=== PATIENT | male | born 1980 | race African-American/Black ===

== ENCOUNTER 2021-01-12 00:43 | Emergency (ER) | payer MEDICAID, OTHER ==
[~2021-01-12] VITALS: Ht 177.8 cm; Wt 5.0 kg
[2021-01-12] MEDS ORDERED: IBUPROFEN 600MG TABLET PO STA (02:15)
[2021-01-12] MEDS ORDERED: IBUP-2029 PO (03:59)
[2021-01-12 04:15] VITALS: BP 107/71
== END 2021-01-12 05:04 | disposition home or self-care (01) ==
LOC: ER 00:43
DX: M25.462 Effusion, left knee (principal)
CPT/HCPCS: 73564; 99283